=== PATIENT | female | born 1965 | race Hispanic/Latino ===

== ENCOUNTER 2016-10-31 13:03 | Emergency (ER) | payer MEDICARE ==
[2016-10-31 13:03] VITALS: BMI 32.1
[2016-10-31 13:34] VITALS: RESP 18; TEMP 97.6
[2016-10-31] MEDS ORDERED: Sodium Chloride 0.9% 1,000 ML IV ONE (14:08)
[2016-10-31] MEDS ORDERED: Sodium Chloride 0.9% 1,000 ML ONE (14:30)
[2016-10-31 14:37] LABS: BASO % 0.5 % (0.0-2.0); EOS # 0.4 K/uL (0.0-0.7); HEMATOCRIT 41.7 % (34.0-47.0); LYMPH # 2.8 K/uL (1.0-4.3); LYMPH % 28.7 % (20.0-40.0); MEAN CELL VOLUME 89.4 fL (81.0-99.0); MEAN CORPUSCULAR HEMOGLOBIN 31.6 pg (27.0-31.0); MEAN CORPUSCULAR HGB CONC 35.3 g/dL (33.0-37.0); MEAN PLATELET VOLUME 9.5 fL (7.2-11.7); MONO # 0.7 K/uL (0.0-0.8); MONO % 7.6 % (0.0-10.0); RED CELL DISTRIBUTION WIDTH 12.6 % (11.5-14.5); WHITE BLOOD COUNT 9.7 K/uL (4.8-10.8)
[2016-10-31 14:41] LABS: RBC URINE 1 /hpf (0-3); URINE BACTERIA RARE (<OCC); URINE BILIRUBIN NEGATIVE (NEGATIVE); URINE BLOOD NEGATIVE (NEGATIVE); URINE COLOR Yellow (YELLOW); URINE GLUCOSE (UA) NORMAL (Normal); URINE KETONE NEGATIVE (NEGATIVE); URINE LEUKOCYTE ESTERASE 3+ Leu/uL (Negative); URINE PROTEIN NEGATIVE (NEGATIVE); URINE UROBILINOGEN NORMAL mg/dL (0.2-1.0); WBC URINE 68 /hpf (0-5)
[2016-10-31 14:51] LABS: ALB/GLOB RATIO 1.4 (1.0-2.1); ALKALINE PHOSPHATASE 90 U/L (38-126); ALT/SGPT 45 U/L (9-52); AST/SGOT 44 U/L (14-36); BILIRUBIN,TOTAL 0.4 mg/dL (0.2-1.3); BLOOD UREA NITROGEN 9 mg/dL (7-17); CALCIUM 9.4 mg/dl (8.6-10.4); CARBON DIOXIDE 22 mmol/L (22-30); CHLORIDE 101 mmol/L (98-107); GFR AFRICAN-AMERICAN > 60; GLUCOSE,RANDOM 173 mg/dL (65-105); POTASSIUM 4.3 mmol/L (3.6-5.2); SODIUM 140 mmol/L (132-148); TOTAL PROTEIN 7.3 g/dL (6.3-8.3)
--- NOTE | 2016-10-31 15:30 | C.PDOC ---
History Of Present Illness Pt c/o urinary frequency and polydipisa. States that her glucose at home has been in the upper 200's range. Time Seen by Provider: 10/31/16 13:54 Chief Complaint (Nursing): Female Genitourinary History Per: Patient, Family Onset/Duration Of Symptoms: Days (few) Current Symptoms Are (Timing): Still Present Severity: Moderate Associated Symptoms: Urinary Symptoms Alleviating Factors: None Additional History Per: Prior Records Abnormal Vaginal Bleeding: No Past Medical History Reviewed: Historical Data, Nursing Documentation, Vital Signs Vital Signs: Last Vital Signs Temp 97.6 F 10/31/16 13:30 Pulse 82 10/31/16 13:30 Resp 18 10/31/16 13:30 BP 140/88 10/31/16 13:30 Pulse Ox 97 10/31/16 13:30 - Medical History PMH: Anemia, Back Problems, COPD, Diabetes, HTN, Hypercholesterolemia, Chronic Pain Surgical History: Cholecystectomy Other Surgeries: Hysterectomy - [facility] Procedures ANESTH INJEC PERIPH NERV (07/31/12) ANESTH INJECT-SPIN CANAL (07/07/14) CYSTOSCOPY NEC (07/26/13) D & C NEC (06/21/13) INJECT STEROID (07/07/14) INJECT/INFUSE NEC (05/07/13) LUMBOSAC SPINE X-RAY NEC (07/07/14) OTH UNILAT SALPINGO-OOPHORECTOMY (07/26/13) OTHER AND UNSPECIFIED SUBTOTAL ABDOMINAL HYSTERECTOMY (07/26/13) PERIPH NERVE INJECT NEC (07/31/12) SPINAL CANAL INJECT NEC (07/07/14) TOTAL UNILAT SALPINGECT (07/26/13) X-RAY NEC AND NOS (05/07/13) Family History: States: Unknown Family Hx - Social History Hx Tobacco Use: Yes Hx Alcohol Use: No Hx Substance Use: No - Immunization History Hx Tetanus Toxoid Vaccination: No Hx Influenza Vaccination: No Hx Pneumococcal Vaccination: No Review Of Systems Except As Marked, All Systems Reviewed And Found Negative. Constitutional: Positive for: Malaise. Negative for: Fever ENT: Negative for: Throat Pain Cardiovascular: Negative for: Chest Pain Respiratory: Negative for: Shortness of Breath, Hemoptysis Gastrointestinal: Negative for: Vomiting, Abdominal Pain, Diarrhea Genitourinary: Positive for: Frequency Musculoskeletal: Negative for: Neck Pain, Back Pain Skin: Negative for: Rash Neurological: Negative for: Weakness, Numbness, Seizures, Altered Mental Status Physical Exam - Physical Exam Appears: Non-toxic, No Acute Distress Skin: Normal Color, Warm, Dry, No Rash Head: Atraumatic, Normacephalic Eye(s): bilateral: Normal Inspection, PERRL, EOMI Throat: Normal Neck: Normal ROM, Supple Cardiovascular: Rhythm Regular Respiratory: Normal Breath Sounds, No Accessory Muscle Use Gastrointestinal/Abdominal: Soft, No Tenderness Back: No CVA Tenderness Extremity: Normal ROM Neurological/Psych: Oriented x3, Normal Motor, Normal Sensation ED Course And Treatment - Laboratory Results Result Diagrams: 10/31/16 14:30 10/31/16 14:30 Lab Interpretation: Abnormal Interpretation Of Abnormal: UTI. Slightly elevated Hgb A1c. O2 Sat by Pulse Oximetry: 97 Pulse Ox Interpretation: Normal Progress - Interventions Interventions:: Observation, Intravenous fluid - Data Reviewed Data Reviewed: Lab, Old records - Patient Status Patient status: Mostly improved - Continuity of Care Discussed patient case with:: Patient, Family-HIPPA compliant, ED Nurse - Patient Plan Patient Plan: Discharge, F/U with PCP Disposition Counseled Patient/Family Regarding: Studies Performed, Diagnosis, Need For Followup, Rx Given, Smoking Cessation - Disposition Disposition: HOME/ ROUTINE Disposition Time: 15:34 Condition: STABLE Additional Instructions: Drink plenty of fluids. Follow up with your doctor for further evaluation and treatment. Return to the ER if you develop fever, abdominal pain, vomiting, worsening of symptoms or if you have any other concerns. Prescriptions: Ciprofloxacin [Cipro] 1 tab PO BID #10 tab metFORMIN [glucOPHAGE] 500 mg PO DAILY #30 tab Instructions: Urinary Tract Infection in Women (ED), Diabetes Mellitus Type 2 in Adults (ED) Forms: [facility] (Bulgarian) - Clinical Impression Clinical Impression: UTI (urinary tract infection), Diabetes mellitus, type 2
[2016-10-31 15:43] VITALS: BP 101/62; PULSE 69; O2SAT 95
== END 2016-10-31 15:49 | disposition home or self-care (01) ==
LOC: C.ER 13:03
DX: N39.0 Urinary tract infection, site not specified (principal); E11.9 Type 2 diabetes mellitus without complications
CPT/HCPCS: 80053; 81001; 83036; 85025; 99284; J7040